=== PATIENT | female | born 1955 | race Caucasian/White ===

== ENCOUNTER 2024-04-30 10:21 | Outpatient (CLI) | payer MEDICARE | END 2024-04-30 10:22 | disposition home or self-care (01) | LOC: BICMAMMO 10:21 | PROVIDERS: ATTEND Registered Nurse Hospice | DX: Z12.31 Encounter for screening mammogram for malignant neoplasm of breast (principal) | CPT/HCPCS: 77063; 77067 ==

== ENCOUNTER 2025-04-30 19:49 | Observation (INO) | payer MEDICARE, SELFPAY ==
[~2025-04-30 19:49] MED LIST: Iopamidol-370 76% 500 ML MDV (1 ML CHARGE) ONE
[2025-04-30 20:45] LABS: #Basophils 0.04 10x3/uL (0.0-0.2); #Eosinophils 0.12 10x3/uL (0.0-0.7); #Monocytes 0.48 10x3/uL (0.11-0.59); #Neutrophils 6.44 10x3/uL (1.40-6.50); %Basophils 0.4 % (0.0-1.0); %Eosinophils 1.3 % (0.0-10.0); %Lymphocytes 21.5 % (21.0-51.0); %Monocytes 5.3 % (0.0-10.0); %Neutrophils 71.2 % (42.0-75.0); Hematocrit 36.8 % (36.0-47.0); Hemoglobin 11.4 g/dL (12.0-16.0); Mean Corpuscular Hemoglobin 23.9 pg (27.0-31.0); Mean Corpuscular Volume 77.1 fL (78.0-98.0); Platelet Count 255 10x3/uL (130-400); Red Blood Cell (RBC) Count 4.77 mill/uL (4.20-5.40); White Blood Cell (WBC) Count 9.06 10x3/uL (4.8-10.8)
[2025-04-30 20:56] LABS: ALT (SGPT) 12 U/L (Less than 34); AST (SGOT) 15 U/L (11-34); Albumin 4.0 g/dL (3.1-4.5); Alkaline Phosphatase 76 U/L (40-110); Anion Gap 9 mmol/L (10-20); BUN (Urea Nitrogen) 15 mg/dL (9.8-20.1); Bilirubin, Total 0.2 mg/dL (0.3-1.2); Calc. Creatinine Clearance 0 mL/min (70-130); Calcium 9.5 mg/dL (7.8-10.44); Carbon Dioxide 26 mmol/L (23-31); Chloride 105 mmol/L (98-107); Globulin 2.7 g/dL (2.4-3.5); Glucose 103 mg/dL (83-110); Potassium 4.2 mmol/L (3.5-5.1); Sodium 136 mmol/L (136-145)
[2025-05-01] MEDS ORDERED: Glucagon 1 MG/ML KIT IM PRN (02:35)
[2025-05-01] MEDS ORDERED: Dextrose 50% Abboject 50 ML SYRINGE SLOW IVP PRN (02:35)
[2025-05-01] MEDS ORDERED: Losartan 25 MG TAB ONE (04:33)
[2025-05-01] MEDS: Losartan 25 MG TAB PO SCH (04:35)
[2025-05-01] MEDS ORDERED: Enoxaparin 40 MG (0.4 mL) SYRINGE ONE (08:22)
[2025-05-01] MEDS: Enoxaparin 40 MG (0.4 mL) SYRINGE SC SCH (08:30)
[2025-05-01 15:16] VITALS: BMI 47.6
[2025-05-01] MEDS: Acetaminophen 325 MG TAB PO PRN (20:46)
[2025-05-02] MEDS: PNEUMOC 20-VAL CONJ-DIP CRM/PF 0.5 ML SYRINGE IM ONE (08:34)
[2025-05-02] MEDS: FLU (Fluad Triv) 25-26 (65UP)PF 45 MCG/0.5 ML Syringe IM ONE (09:54)
[2025-05-02 12:03] VITALS: TEMP 97.7
[2025-05-02 12:04] VITALS: BP 178/85
[2025-05-02] MEDS ORDERED: metFORMIN 500 MG TAB PO SCH (21:00)
[2025-05-02] MEDS ORDERED: glipiZIDE XL 5 mg ER.TAB PO SCH (21:00)
[2025-05-03] MEDS ORDERED: Losartan 25 MG TAB PO SCH (09:00)
[2025-05-03] MEDS ORDERED: Famotidine 20 MG TAB PO SCH (09:00)
[2025-05-03] MEDS ORDERED: Citalopram 20 MG TAB PO SCH (09:00)
[2025-05-11] MEDS ORDERED: Ergocalciferol 1.25 MG(50,000 UNITS) CAP PO SCH (09:00)
== END 2025-05-02 15:32 | disposition home or self-care (01) ==
LOC: ERS 19:49 → ERHOLD 05-01 01:50 → OBS 05-01 11:17
PROVIDERS: ADMIT Internal Medicine; ATTEND Internal Medicine
PROC: B24BZZZ Ultrasonography of Heart with Aorta (ICD-10-PCS; principal; 2025-05-01)
DX: R07.89 Other chest pain (principal); R06.02 Shortness of breath; I10 Essential (primary) hypertension; E11.9 Type 2 diabetes mellitus without complications; E66.01 Morbid (severe) obesity due to excess calories; Z68.42 Body mass index [BMI] 45.0-49.9, adult; Z79.84 Long term (current) use of oral hypoglycemic drugs; Z79.899 Other long term (current) drug therapy
CPT/HCPCS: 71045; 71275; 78452; 80053; 82962 ×2; 83880; 84484 ×3; 85025; 90653; 93005; 93017; 93306; 96372 ×2; A9502; G0378 ×3; J1650 ×2; J2785 ×2; Q9967; 36415; 36416